=== PATIENT | female | born 1955 | race Caucasian/White ===

== ENCOUNTER 2020-09-02 15:06 | Outpatient (REF) | payer OTHER, SELFPAY ==
[2020-09-02 17:12] LABS: Alanine Aminotransferase 13 U/L (0-31); Albumin Level 4.7 g/dL (3.5-5.0); Alkaline Phosphatase 185 U/L (39-117); Anion Gap 14 (12-20); Aspartate Amino Transferase 20 U/L (5-31); Bilirubin Total 1.1 mg/dL (0.0-1.0); Blood Urea Nitrogen 10 mg/dL (9-16); Calcium 9.4 mg/dL (8.4-10.2); Carbon Dioxide 26 mmol/L (22-29); Chloride 101 mmol/L (96-108); Estimated Glomerular Filt Rate > 60; Glucose Random 92 mg/dL (60-115); Potassium 4.9 mmol/L (3.3-5.1); Sodium 136 mmol/L (135-145); Total Protein 7.7 g/dL (6.5-8.0)
== END 2020-09-02 15:07 | disposition home or self-care (01) ==
LOC: HO.HMGCLDS 15:06
PROVIDERS: PCP Internal Medicine; Visit Provider Internal Medicine
DX: I10 Essential (primary) hypertension (principal)
CPT/HCPCS: 36415; 80053

== ENCOUNTER 2020-10-06 08:50 | Outpatient (REF) | payer OTHER, SELFPAY ==
--- NOTE | ~2020-10-06 | US_ITS ---
EXAMINATION: US ABDOMEN COMPLETE CLINICAL INFORMATION: Other specified abnormal findings of blood chemistry. Abnormal LFTs COMPARISON: Ultrasound abdomen complete 06/12/2018. TECHNIQUE: Real-time imaging of the abdominal viscera. FINDINGS: PANCREAS: Normal. ABDOMINAL AORTA: The proximal, mid, and distal segments are normal in caliber. Atheromatous plaques are noted. INFERIOR VENA CAVA: Visualized portions are normal. LIVER: Normal. The liver is normal in size. The liver contour is normal. Parenchymal echogenicity is normal. No focal hepatic lesion. There is no intrahepatic biliary duct dilatation seen. GALLBLADDER: Normal. The gallbladder is physiologically distended without evidence of stones, sludge, polyps, wall thickening or pericholecystic fluid. COMMON BILE DUCT: Normal in caliber measuring 0.4 cm in diameter. RIGHT KIDNEY: Normal. No hydronephrosis. No renal calculi or focal parenchymal lesions. The kidney measures 8.7 cm in maximum dimension. LEFT KIDNEY: Normal. No hydronephrosis. No renal calculi or focal parenchymal lesions. The kidney measures 9.0 cm in maximum dimension. SPLEEN: Normal. The spleen measures 6.1 cm in maximum dimension. FREE FLUID: None. US/US abdomen complete IMPRESSION: Normal abdominal ultrasound.
== END 2020-10-06 08:51 | disposition home or self-care (01) ==
LOC: HO.HMGCX 08:50
PROVIDERS: PCP Internal Medicine; Visit Provider Internal Medicine
DX: R79.89 Other specified abnormal findings of blood chemistry (principal)
CPT/HCPCS: 76700

== ENCOUNTER 2020-11-02 17:50 | Outpatient (REF) | payer OTHER, SELFPAY ==
--- NOTE | ~2020-11-02 | XR_ITS ---
EXAMINATION: XR CERVICAL SPINE CLINICAL INFORMATION: Cervical pain post injury COMPARISON: None TECHNIQUE: 3 views of the cervical spine were obtained. FINDINGS: No prevertebral soft tissue swelling. Bones are normal anatomic alignment with no acute fracture or spondylolisthesis. Vertebral body heights are preserved and the disc heights appear preserved. There is prominent osteophyte formation anteriorly from C3 to C7. XR/XR cervical spine 3V IMPRESSION: Multilevel degenerative changes but no acute fracture or spondylolisthesis.
== END 2020-11-02 17:51 | disposition home or self-care (01) ==
LOC: HO.HMGCX 17:50
PROVIDERS: PCP Internal Medicine; Visit Provider Nurse Practitioner Family
DX: M54.2 Cervicalgia (principal)
CPT/HCPCS: 72040

== ENCOUNTER → 2020-12-01 08:03 | Outpatient (BNVA) | payer OTHER, SELFPAY | PROVIDERS: PCP Internal Medicine; Referring Provider Internal Medicine; Visit Provider Physician Assistant ==

== ENCOUNTER 2020-12-22 07:19 | Outpatient (REF) | payer OTHER, SELFPAY ==
[2020-12-22 08:44] LABS: Alanine Aminotransferase 12 U/L (0-31); Albumin Level 4.3 g/dL (3.5-5.0); Alkaline Phosphatase 200 U/L (39-117); Aspartate Amino Transferase 18 U/L (5-31); Bilirubin Direct 0.4 mg/dL (0.0-0.5); Bilirubin Total 1.1 mg/dL (0.0-1.0); Cholesterol 210 mg/dL; Gamma Glutamyl Transpeptidase 27 U/L (7-33); HDL Cholesterol 65 mg/dL; LDL Cholesterol Calculated 128 mg/dl; Triglycerides 85 mg/dL
[2020-12-23 08:47] LABS: Lyme Abs Screen <0.90 index
== END 2020-12-22 07:20 | disposition home or self-care (01) ==
LOC: HO.LAB 07:19
PROVIDERS: PCP Internal Medicine; Visit Provider Physician Assistant
DX: R79.89 Other specified abnormal findings of blood chemistry (principal); K76.0 Fatty (change of) liver, not elsewhere classified; R74.8 Abnormal levels of other serum enzymes; R10.11 Right upper quadrant pain; W57.XXXA Bitten or stung by nonvenomous insect and other nonvenomous arthropods, initial encounter
CPT/HCPCS: 36415; 80061; 80076; 82977; 86617; 86618

== ENCOUNTER → 2021-01-24 07:57 | Outpatient (BNVA) | payer OTHER, SELFPAY | PROVIDERS: PCP Internal Medicine; Visit Provider Physician Assistant ==

== ENCOUNTER 2021-07-11 07:21 | Outpatient (REF) | payer OTHER, SELFPAY ==
[2021-07-11 07:31] LABS: MANUAL DIFF FLAG NO
[2021-07-11 07:55] LABS: Basophils Percent Auto 0.3 % (0-2); Eosinophils Absolute Auto 0.2 X10*3/uL (0.0-0.4); Eosinophils Percent Auto 3.7 % (0-4); Hematocrit 36.7 % (37.0-47.0); Hemoglobin 11.8 g/dl (12.0-16.0); Imm Gran Abs Auto 0.01 X10*3/uL (0.00-0.03); Imm Gran Pct Auto 0.2 % (0.0-0.4); Lymphocytes Percent Auto 32.9 % (20-40); Mean Corpuscular HGB Conc 32.2 g/dl (31.0-35.0); Mean Corpuscular Hemoglobin 29.7 pg (27.0-33.0); Mean Corpuscular Volume 92.4 fL (80.0-98.0); Mean Platelet Volume 10.8 fL (9.4-12.3); Monocytes Absolute Auto 0.6 X10*3/uL (0.1-1.2); Monocytes Percent Auto 10.1 % (2-11); Neutrophils Absolute Auto 3.2 x10*3/uL (2.0-8.3); Neutrophils Percent Auto 52.8 % (45-73); Platelet Count 294 X10*3/uL (160-400); Red Blood Count 3.97 X10*6/uL (4.20-5.50); Red Cell Distribution Width 13.2 % (11.0-16.0)
[2021-07-11 08:16] LABS: Alanine Aminotransferase 14 U/L (0-31); Albumin Level 4.1 g/dL (3.5-5.0); Alkaline Phosphatase 157 U/L (39-117); Anion Gap 10 (12-20); Aspartate Amino Transferase 18 U/L (5-31); Bilirubin Direct 0.3 mg/dL (0.0-0.5); Bilirubin Total 0.9 mg/dL (0.0-1.0); Blood Urea Nitrogen 9 mg/dL (9-16); Calcium 9.4 mg/dL (8.4-10.2); Carbon Dioxide 26 mmol/L (22-29); Chloride 107 mmol/L (96-108); Cholesterol 207 mg/dL; Estimated Glomerular Filt Rate > 60; Gamma Glutamyl Transpeptidase 29 U/L (7-33); Glucose Fasting 96 mg/dL (60-99); HDL Cholesterol 69 mg/dL; LDL Cholesterol Calculated 115 mg/dl; Potassium 4.7 mmol/L (3.3-5.1); Sodium 138 mmol/L (135-145); Total Protein 6.9 g/dL (6.5-8.0); Triglycerides 118 mg/dL
[2021-07-11 08:27] LABS: TSH reflex Free T4 2.57 uIU/mL (0.32-4.0)
== END 2021-07-11 07:22 | disposition home or self-care (01) ==
LOC: HO.LAB 07:21
PROVIDERS: Absent Provider Internal Medicine Gastroenterology; PCP Internal Medicine; Visit Provider Internal Medicine
DX: Z00.01 Encounter for general adult medical examination with abnormal findings (principal); I10 Essential (primary) hypertension; R74.8 Abnormal levels of other serum enzymes
CPT/HCPCS: 36415; 80053; 80061; 80076; 82248; 82977; 84443; 85025

== ENCOUNTER 2022-03-09 13:27 | Outpatient (REF) | payer OTHER, SELFPAY ==
[2022-03-09 16:23] LABS: MANUAL DIFF FLAG NO
[2022-03-09 16:27] LABS: Basophils Percent Auto 0.4 % (0-2); Eosinophils Absolute Auto 0.2 X10*3/uL (0.0-0.4); Eosinophils Percent Auto 2.2 % (0-4); Hemoglobin 11.6 g/dl (12.0-16.0); Imm Gran Abs Auto 0.02 X10*3/uL (0.00-0.03); Imm Gran Pct Auto 0.3 % (0.0-0.4); Lymphocytes Absolute Auto 2.1 X10*3/uL (1.2-4.9); Mean Corpuscular HGB Conc 33.1 g/dl (31.0-35.0); Mean Corpuscular Hemoglobin 30.3 pg (27.0-33.0); Mean Corpuscular Volume 91.4 fL (80.0-98.0); Mean Platelet Volume 11.6 fL (9.4-12.3); Monocytes Absolute Auto 0.6 X10*3/uL (0.1-1.2); Monocytes Percent Auto 7.9 % (2-11); Neutrophils Absolute Auto 4.6 x10*3/uL (2.0-8.3); Neutrophils Percent Auto 61.2 % (45-73); Platelet Count 284 X10*3/uL (160-400); Red Blood Count 3.83 X10*6/uL (4.20-5.50); Red Cell Distribution Width 13.2 % (11.0-16.0); White Blood Count 7.6 X10*3/uL (4.8-10.8)
[2022-03-09 16:37] LABS: Alanine Aminotransferase 15 U/L (0-31); Albumin Level 4.7 g/dL (3.5-5.0); Alkaline Phosphatase 173 U/L (39-117); Anion Gap 17 (12-20); Aspartate Amino Transferase 20 U/L (5-31); Bilirubin Total 0.9 mg/dL (0.0-1.0); Blood Urea Nitrogen 7 mg/dL (9-16); Calcium 9.4 mg/dL (8.4-10.2); Carbon Dioxide 24 mmol/L (22-29); Chloride 104 mmol/L (96-108); Estimated Glomerular Filt Rate > 60; Glucose Random 93 mg/dL (60-115); Potassium 4.6 mmol/L (3.3-5.1); Sodium 140 mmol/L (135-145); Total Protein 7.5 g/dL (6.5-8.0)
[2022-03-11 01:17] LABS: LDL Cholesterol Direct 133 mg/dL (<100)
== END 2022-03-09 13:28 | disposition home or self-care (01) ==
LOC: HO.HMGCLDS 13:27
PROVIDERS: PCP Internal Medicine; Visit Provider Internal Medicine
DX: Z00.01 Encounter for general adult medical examination with abnormal findings (principal); I10 Essential (primary) hypertension; R79.89 Other specified abnormal findings of blood chemistry; D64.9 Anemia, unspecified
CPT/HCPCS: 36415; 80053; 83721; 85025

== ENCOUNTER 2022-09-07 13:29 | Outpatient (REF) | payer OTHER, SELFPAY ==
[2022-09-07 18:25] LABS: Alanine Aminotransferase 15 U/L (0-31); Albumin Level 4.2 g/dL (3.5-5.0); Alkaline Phosphatase 140 U/L (39-117); Anion Gap 12 (12-20); Aspartate Amino Transferase 19 U/L (5-31); Bilirubin Total 1.1 mg/dL (0.0-1.0); Blood Urea Nitrogen 9 mg/dL (9-16); Carbon Dioxide 24 mmol/L (22-29); Chloride 108 mmol/L (96-108); Estimated Glomerular Filt Rate > 60; Glucose Random 77 mg/dL (60-115); Potassium 4.1 mmol/L (3.3-5.1); Sodium 140 mmol/L (135-145); Total Protein 6.6 g/dL (6.5-8.0)
== END 2022-09-07 13:30 | disposition home or self-care (01) ==
LOC: HO.HMGCLDS 13:29
PROVIDERS: PCP Internal Medicine; Visit Provider Internal Medicine
DX: I10 Essential (primary) hypertension (principal); R79.89 Other specified abnormal findings of blood chemistry
CPT/HCPCS: 36415; 80053

== ENCOUNTER 2023-01-16 12:44 | Outpatient (AMB) | payer OTHER, SELFPAY ==
[2023-01-16 12:49] VITALS: BP 126/70; PULSE 71; O2SAT 99; BMI 17.6
--- NOTE | 2023-01-16 12:49 | MHC.PC.OV ---
Vital Signs 01/16/23 12:49 Height 4 ft 11 in Weight 87 lb BMI 17.6 BP 126/70 Blood Pressure Location Rt brachial Position Sitting Pulse 71 Pulse Source Pulse Oximeter Pulse Oximetry (%) 99 Oxygen Delivery Method Room Air Intake Visit Reasons: Right Calf Cramp Allergies No Known Allergies Allergy (Verified 01/16/23 12:50) Medication List - Last Reconciled 01/16/23 by Musa Muhammad MD lisinopril 10 mg PO DAILY Tobacco use date assessed: 01/16/23 Fall risk assessment: No Falls in past year Last assessed Fall Risk: 01/16/23 Dental Screening Dental Screen Date: 01/16/23 Did you have a dental visit in the last 12 months?: Yes Did you have a dental problem in the last 6 months where you did not have access to dental care?: No Was dental information given to patient?: No HPI Right Calf Cramp HPI Details Patient is 67-year-old female who traveled to [place] few days ago and was walking a lot during her visit came in today with a chief complaint of pain right calf for the past few days since she has had visit to [place] Patient says that it does not hurt all the time but she is aware that there is something going on. It feels like a soreness more so when she is walking. On examination she is tender over calf with pressure home inside in a is slightly positive I am ordering ultrasound of her calf stat to rule out DVT. 16:14 ultrasound report came back negative for DVT patient was [facility] Medical History Tick bite Family History Unknown No family history of colorectal cancer Social History Household Members Other:: Lives alone Housing: House Alcohol intake: current Alcohol intake frequency: a few times a month Patient Tobacco Use Status: Former Tobacco user Years Smoked: 20 yrs e-Cigarette/Vaping Use: Never Used Current occupational status: employed Cognitive needs: No Hearing needs: No Vision needs: Yes Questionnaire Thrive Questionnaire Date Thrive assessed: 03/09/22 AUDIT C Alcohol Use Questionnaire (AUDIT-C) 1. How often do you have a drink containing alcohol?: Never 3. How often do you have six or more drinks on one occasion?: Never Total Score: 0 Score Reviewed/Action Taken: Yes VENESSA-7 AMB Questionnaire VENESSA-7 Date VENESSA - 7 assessed: 03/09/22 Source: Developed by Drs. Trip Shepard, Cassandra Hernandez, Td Mendoza and colleagues, with an educational kristi from [employer]. Review of Systems Const Denies chills and Denies fever(s) ENT Denies epistaxis and Denies nasal discharge Card Denies chest pain Resp Denies chest congestion, Denies cough and Denies hemoptysis GI Denies diarrhea and Denies nausea Skin/Breast Denies rash Neuro Reports no additional complaints Psych Reports no additional complaints Endo Reports no additional complaints Physical exam (Primary Care) Vital Signs: Last Vital Signs Pulse 71 01/16/23 12:49 BP 126/70 01/16/23 12:49 Pulse Ox 99 01/16/23 12:49 Oxygen Delivery Method Room Air 01/16/23 12:49 BMI result Body Mass Index 17.6 Tobacco/Smoking Status: Tobacco use Status Tobacco use date assessed 01/16/23 01/16/23 12:50 Patient Tobacco Use Status Former Tobacco user 01/16/23 12:50 e-Cigarette/Vaping Use Never Used 01/16/23 12:50 Thrive Assessment: Date of Thrive Assessment Date Thrive assessed 03/09/22 01/16/23 12:50 Const General: cooperative, comfortable and no acute distress Orientation/consciousness: patient oriented x3 HENMT Head: Yes normocephalic Eyes General: appearance normal, both eyes and all related structures Neck Neck: Yes supple Resp Effort & Inspection: normal respiratory effort, no cough and no stridor Cardio Rhythm: regular rhythm Heart sounds: S1 normal heart sound present and S2 normal heart sound present Skin General skin exam: turgor normal Neuro General: patient oriented x3, tone normal and moves all extremities Extrem Other: Tender over right calf with pressure Sin sign slightly positive Right lower extremity: no edema Left lower extremity: no edema Assessment and Plan Assessment & Plan (1) Tenderness of right calf: Code(s): M79.661 - Pain in right lower leg Plan Patient is 67-year-old female who traveled to [place] few days ago and was walking a lot during her visit came in today with a chief complaint of pain right calf for the past few days since she has had visit to [place] Patient says that it does not hurt all the time but she is aware that there is something going on. It feels like a soreness more so when she is walking. On examination she is tender over calf with pressure home inside in a is slightly positive I am ordering ultrasound of her calf stat to rule out DVT. 16:14 ultrasound report came back negative for DVT patient was notified Orders: Orders US venous duplex LE RT Today M79.661 - Pain in right lower leg Medications: Refilled lisinopril 10 mg PO DAILY 90 tabs 0RF Coding Level of Care Code Est Pt Level 5 (22625) Diagnoses Tenderness of right calf M79.661 Comment More than 45 minute spent in coordination of care
== END 2023-01-16 14:08 | disposition home or self-care (01) ==
PROVIDERS: PCP Internal Medicine; Visit Provider Internal Medicine
DX: M79.661 Pain in right lower leg (principal); R25.2 Cramp and spasm
CPT/HCPCS: 99215

== ENCOUNTER 2023-01-16 13:23 | Outpatient (REF) | payer OTHER, SELFPAY ==
--- NOTE | ~2023-01-16 | US_ITS ---
EXAMINATION: US VENOUS ULTRASOUND WITH DOPPLER LOWER EXTREMITY, RIGHT CLINICAL INFORMATION: Right lower leg pain. COMPARISON: None available. TECHNIQUE: Ultrasound of the deep veins is performed from the hip to the calf with compression sonography and color and pulse Doppler assessment. Spectral analysis with color-flow imaging is performed. FINDINGS: There is normal venous compression and respiratory variation and augmented flow. The visualized common femoral vein, superficial femoral vein, profunda femoral vein, popliteal vein, and the trifurcation region shows no evidence of deep venous thrombosis. No right popliteal cyst. The subcutaneous soft tissues are unremarkable. If the patient's symptoms persist, followup ultrasound in 5 days 7 days might be of value to exclude proximal propagation from a non-visualized calf vein. US/US venous duplex LE RT IMPRESSION: No evidence for deep venous thrombosis in the visualized veins of the right lower extremity.
== END 2023-01-16 13:24 | disposition home or self-care (01) ==
LOC: HO.HMGCX 13:23
PROVIDERS: PCP Internal Medicine; Visit Provider Internal Medicine
DX: M79.661 Pain in right lower leg (principal)
CPT/HCPCS: 93971

== ENCOUNTER 2023-03-15 12:59 | Outpatient (AMB) | payer OTHER, SELFPAY ==
[2023-03-15 13:01] VITALS: BP 126/72; PULSE 72; O2SAT 96; BMI 17.9
--- NOTE | 2023-03-15 13:01 | MHC.PC.OV ---
Vital Signs 03/15/23 13:01 Height 4 ft 11 in Weight 88 lb 8 oz BMI 17.9 BP 126/72 Blood Pressure Location Lt brachial Position Sitting Pulse 72 Pulse Source Pulse Oximeter Pulse Oximetry (%) 96 Oxygen Delivery Method Room Air Intake Visit Reasons: PE Allergies No Known Allergies Allergy (Verified 03/15/23 13:01) Medication List - Last Reconciled 03/15/23 by Musa Muhammad MD lisinopril 10 mg PO DAILY Tobacco use date assessed: 03/15/23 Fall risk assessment: No Falls in past year Last assessed Fall Risk: 03/15/23 Dental Screening Dental Screen Date: 03/15/23 Did you have a dental visit in the last 12 months?: Yes Did you have a dental problem in the last 6 months where you did not have access to dental care?: No Was dental information given to patient?: Patient has dentist HPI PE HPI Details Patient is a 67-year-old female came in today for physical examination She is on lisinopril 10 mg for blood pressure control Mammogram apt is coming up Due for bone density had colonoscopy by Dr. Marilyn Dacosta, next one will be 2027 Pap smear June of 2020, every 5 years Patient has seen Gastroenterology for elevated liver enzymes seeing Urologist for blood in urine, doing well, and will have f.u once a year with Urology Lab order already in her system patient was supposed to have that before this visit. Reminded Follow-up 6 months physical examination 1 year [facility] [place] Medical History Tick bite Family History Unknown No family history of colorectal cancer Social History Household Members Other:: Lives alone Housing: House Alcohol intake: current Alcohol intake frequency: a few times a month Patient Tobacco Use Status: Former Tobacco user Years Smoked: 20 yrs e-Cigarette/Vaping Use: Never Used service: No Current occupational status: employed Cognitive needs: No Hearing needs: No Vision needs: Yes Questionnaire PHQ-9 Over the last 2 weeks, how often have you been bothered by any of the following problems? 1. Little interest or pleasure in doing things: not at all 2. Feeling down, depressed, or hopeless: not at all 3. Trouble falling or staying asleep, or sleeping too much: not at all 4. Feeling tired or having little energy: not at all 5. Poor appetite or overeating: not at all 6. Feeling bad about yourself - or that you are a failure or have let yourself or your family down: not at all 7. Trouble concentrating on things, such as reading the newspaper or watching television: not at all 8. Moving or speaking so slowly that other people could have noticed. Or the opposite - being so fidgety or restless that you have been moving around a lot more than usual: not at all 9. Thoughts that you would be better off or of hurting yourself in some way: not at all Total score: 0 Depression Screening Interpretation: Negative 79313 - PHQ-9 Billing: Yes Source: Developed by Drs. Trip Shepard, Cassandra Hernandez, Td Mendoza and colleagues, with an educational kristi from [employer]. Thrive Questionnaire Date Thrive assessed: 03/15/23 I am a: Patient What is your living situation today?: I have a steady place to live Within the past 12 months, did the food you bought not last and you didn't have the money to get more?: Never true Within the past 12 months, did you worry whether your food would run out before you got money to buy more?: Never true Do you have trouble paying for medicines?: No Do you have trouble getting transportation to medical appointments?: No Do you have trouble paying your heating and electricity bill?: No Do you have trouble taking care of your child, family member or friend?: No Do you have trouble with day-to-day activities such as bathing, preparing meals, shopping, managing finances, etc.?: No Are you currently unemployed and looking for a job?: Yes Are you interested in more education?: Yes AUDIT C Alcohol Use Questionnaire (AUDIT-C) 1. How often do you have a drink containing alcohol?: Never 3. How often do you have six or more drinks on one occasion?: Never Total Score: 0 Score Reviewed/Action Taken: Yes VENESSA-7 AMB Questionnaire VENESSA-7 Date VENESSA - 7 assessed: 03/15/23 Feeling nervous, anxious, or on edge: 0 = Not at all Not being able to stop or control worryin = Not at all Worrying too much about different things: 0 = Not at all Trouble relaxin = Not at all Being so restless that it is hard to sit still: 0 = Not at all Becoming easily annoyed or irritable: 0 = Not at all Feeling afraid as if something awful might happen: 0 = Not at all Total VENESSA-7 score (0-4 normal; 5-9 mild; 10-14 moderate; 15-21 severe): 0 Source: Developed by Drs. Trip Shepard, Cassandra Hernandez, Td Mendoza and colleagues, with an educational kristi from [employer]. VENESSA-7 Assessment Billing VENESSA-7 Assessment Tool: VENESSA-7 Assessment 74497 Review of Systems Const Denies chills and Denies fever(s) Eyes Denies blurry vision ENT Denies epistaxis and Denies nasal discharge Card Denies chest pain Resp Denies chest congestion, Denies cough and Denies hemoptysis GI Denies diarrhea and Denies nausea Reports as per HPI Musc Denies abnormal gait Skin/Breast Denies rash Neuro Reports no additional complaints, Denies abnormal gait and Denies Sensory deficit (Neuro) Psych Reports no additional complaints Endo Reports no additional complaints Serge/Lymph Reports as per HPI Aller/Immun Reports as per HPI Physical exam (Primary Care) Vital Signs: Last Vital Signs Pulse 72 03/15/23 13:01 BP 126/72 03/15/23 13:01 Pulse Ox 96 03/15/23 13:01 Oxygen Delivery Method Room Air 03/15/23 13:01 BMI result Body Mass Index 17.9 Tobacco/Smoking Status: Tobacco use Status Tobacco use date assessed 03/15/23 03/15/23 13:02 Patient Tobacco Use Status Former Tobacco user 03/15/23 13:02 e-Cigarette/Vaping Use Never Used 03/15/23 13:02 PHQ-9: PHQ-9 Score PHQ-9: Total score 0 03/15/23 13:40 Depression Screening Interpretation: Negative Thrive Assessment: Date of Thrive Assessment Date Thrive assessed 03/15/23 03/15/23 13:40 Const General: cooperative, comfortable and no acute distress Orientation/consciousness: patient oriented x3 HENMT Head: Yes normocephalic Eyes General: appearance normal, both eyes and all related structures Pupils: Equal, round and reactive pupils present EOM: EOMs intact bilaterally Neck Neck: Yes supple Thyroid: Thyroid normal Lymphatic: no lymphadenopathy noted Chest Breast/axilla palpation: normal palpation of the breasts Resp Effort & Inspection: normal respiratory effort, no cough and no stridor Auscultation: clear to auscultation bilaterally Cardio Rhythm: regular rhythm Heart sounds: S1 normal heart sound present and S2 normal heart sound present GI Palpation (GI): Soft to palpation and nontender Auscultation: normal bowel sounds General: Yes no CVA tenderness Back/Spine/Pelvis Back: no CVA tenderness Skin General skin exam: turgor normal Neuro General: patient oriented x3, tone normal and moves all extremities Cranial nerves: Yes Equal, round and reactive pupils present Sensory Exam: No Sensory deficit (Neuro) Coordination: tandem gait normal and Romberg test negative Extrem General: Yes normal exam except as noted and No edema Right lower extremity: no edema Left lower extremity: no edema Assessment and Plan Assessment & Plan (1) Encounter for general adult medical examination with abnormal findings: Code(s): Z00.01 - Encounter for general adult medical examination with abnormal findings (2) Elevated alkaline phosphatase level: Comment: [id number] on elevated alk-phos Code(s): R74.8 - Abnormal levels of other serum enzymes (3) Osteoarthritis of multiple joints: Code(s): M15.9 - Polyosteoarthritis, unspecified Qualifiers: Osteoarthritis type: primary Qualified Code(s): M15.9 - Polyosteoarthritis, unspecified (4) Hypertension, essential: Code(s): I10 - Essential (primary) hypertension Plan Patient is a 67-year-old female came in today for physical examination She is on lisinopril 10 mg for blood pressure control Mammogram apt is coming up Due for bone density had colonoscopy by Dr. Marilyn Dacosta, next one will be 2027 Pap smear June of 2020, every 5 years Patient has seen Gastroenterology for elevated liver enzymes seeing Urologist for blood in urine, doing well, and will have f.u once a year with Urology Lab order already in her system patient was supposed to have that before this visit. Reminded Follow-up 6 months physical examination 1 year Coding Level of Care Code Est Pt Prev Care >65y(21974) Diagnoses Encounter for general adult medical examination with abnormal findings Z00.01 Elevated alkaline phosphatase level R74.8 Primary osteoarthritis involving multiple joints M15.9 Osteoarthritis type: primary Hypertension, essential I10 Additional Codes VENESSA-7 Assessment Billing - VENESSA-7 Assessment Tool: VENESSA-7 Assessment 30030 ([id number])
== END 2023-03-15 13:29 | disposition home or self-care (01) ==
PROVIDERS: Visit Provider Internal Medicine
DX: Z00.01 Encounter for general adult medical examination with abnormal findings (principal); R74.8 Abnormal levels of other serum enzymes; M15.9 Polyosteoarthritis, unspecified; I10 Essential (primary) hypertension
CPT/HCPCS: 99397

== ENCOUNTER 2023-03-28 07:05 | Outpatient (REF) | payer OTHER, SELFPAY ==
[2023-03-28 07:14] LABS: MANUAL DIFF FLAG NO
[2023-03-28 07:50] LABS: Basophils Percent Auto 0.6 % (0-2); Eosinophils Absolute Auto 0.2 X10*3/uL (0.0-0.4); Eosinophils Percent Auto 2.9 % (0-4); Hematocrit 37.5 % (37.0-47.0); Hemoglobin 12.5 g/dl (12.0-16.0); Imm Gran Abs Auto 0.01 X10*3/uL (0.00-0.03); Imm Gran Pct Auto 0.2 % (0.0-0.4); Lymphocytes Absolute Auto 1.7 X10*3/uL (1.2-4.9); Lymphocytes Percent Auto 33.3 % (20-40); Mean Corpuscular HGB Conc 33.3 g/dl (31.0-35.0); Mean Corpuscular Hemoglobin 31.2 pg (27.0-33.0); Mean Corpuscular Volume 93.5 fL (80.0-98.0); Mean Platelet Volume 10.5 fL (9.4-12.3); Monocytes Absolute Auto 0.5 X10*3/uL (0.1-1.2); Monocytes Percent Auto 9.4 % (2-11); Neutrophils Absolute Auto 2.8 x10*3/uL (2.0-8.3); Neutrophils Percent Auto 53.6 % (45-73); Platelet Count 305 X10*3/uL (160-400); Red Blood Count 4.01 X10*6/uL (4.20-5.50); Red Cell Distribution Width 13.5 % (11.0-16.0); White Blood Count 5.2 X10*3/uL (4.8-10.8)
[2023-03-28 08:28] LABS: Alanine Aminotransferase 15 U/L (0-31); Albumin Level 4.5 g/dL (3.5-5.0); Alkaline Phosphatase 139 U/L (39-117); Anion Gap 14 (12-20); Aspartate Amino Transferase 22 U/L (5-31); Blood Urea Nitrogen 8 mg/dL (9-16); Calcium 9.8 mg/dL (8.4-10.2); Carbon Dioxide 23 mmol/L (22-29); Chloride 107 mmol/L (96-108); Cholesterol 251 mg/dL (<200); Estimated Glomerular Filt Rate > 60; Glucose Fasting 94 mg/dL (60-99); HDL Cholesterol 79 mg/dL (>40); LDL Cholesterol Calculated 150 mg/dL (<100); Potassium 4.5 mmol/L (3.3-5.1); Sodium 139 mmol/L (135-145); Total Protein 7.3 g/dL (6.5-8.0); Triglycerides 111 mg/dL (<150)
[2023-03-28 08:47] LABS: Ferritin 48 ng/mL (10-250)
== END 2023-03-28 07:06 | disposition home or self-care (01) ==
LOC: HO.LAB 07:05
PROVIDERS: PCP Internal Medicine; Visit Provider Internal Medicine
DX: I10 Essential (primary) hypertension (principal); R79.89 Other specified abnormal findings of blood chemistry; D64.9 Anemia, unspecified; M15.9 Polyosteoarthritis, unspecified
CPT/HCPCS: 36415; 80053; 80061; 82728; 85025

== ENCOUNTER 2023-09-13 12:56 | Outpatient (AMB) | payer OTHER, SELFPAY ==
[2023-09-13 13:14] VITALS: BP 118/62; PULSE 69; O2SAT 97; BMI 17.2
--- NOTE | 2023-09-13 13:14 | MHC.PC.OV ---
Vital Signs 09/13/23 13:14 Height 4 ft 11 in Weight 85 lb 6 oz BMI 17.2 BP 118/62 Blood Pressure Location Rt brachial Position Sitting Pulse 69 Pulse Source Pulse Oximeter Pulse Oximetry (%) 97 Oxygen Delivery Method Room Air Intake Visit Reasons: 6 month follow up Allergies No Known Allergies Allergy (Verified 09/13/23 13:16) Medication List - Last Reconciled 09/13/23 by Musa Muhammad MD lisinopril 10 mg PO DAILY rosuvastatin 5 mg PO DAILY Tobacco use date assessed: 09/13/23 Fall risk assessment: No Falls in past year Last assessed Fall Risk: 09/13/23 Dental Screening Dental Screen Date: 09/13/23 Did you have a dental visit in the last 12 months?: Yes Did you have a dental problem in the last 6 months where you did not have access to dental care?: No Was dental information given to patient?: Patient has dentist HPI 6 month follow up HPI Details Patient is 67-year-old female came in today for preop clearance and follow-up Patient is taking lisinopril 10 mg for blood pressure control, she is tolerating medication her blood pressure is controlled She is also on small dose of rosuvastatin for lipid control She is due for labs Patient is going in for left eye vitrectomy October [address] Rasmussen by [facility] specialist Patient need clearance for that surgery Currently she is having some allergy symptoms due to spring which present with nasal congestion and irritated cough I have told her to start taking Claritin or Zyrtec [id number] She has no fever no chills no nausea vomiting diarrhea no chest congestion Patient has no cardiac history she is known diabetic I will create addendum once I have lab report for clearance [facility] Medical History Tick bite Family History Unknown No family history of colorectal cancer Social History Household Members Other:: Lives alone Housing: House Alcohol intake: current Alcohol intake frequency: a few times a month Patient Tobacco Use Status: Former Tobacco user Years Smoked: 20 yrs e-Cigarette/Vaping Use: Never Used service: No Current occupational status: employed Cognitive needs: No Hearing needs: No Vision needs: Yes Questionnaire Thrive Questionnaire Date Thrive assessed: 03/15/23 AUDIT C Alcohol Use Questionnaire (AUDIT-C) 1. How often do you have a drink containing alcohol?: Never 3. How often do you have six or more drinks on one occasion?: Never Total Score: 0 Score Reviewed/Action Taken: Yes VENESSA-7 AMB Questionnaire VENESSA-7 Date VENESSA - 7 assessed: 03/15/23 Source: Developed by Drs. Trip Shepard, Cassandra Hernandez, Td Mendoza and colleagues, with an educational kristi from [employer]. Review of Systems Const Denies chills and Denies fever(s) ENT Denies epistaxis Card Denies chest pain Resp Denies chest congestion and Denies hemoptysis GI Denies diarrhea and Denies nausea Skin/Breast Denies rash Neuro Reports no additional complaints Psych Reports no additional complaints Endo Reports no additional complaints Physical exam (Primary Care) Vital Signs: Last Vital Signs Pulse 69 09/13/23 13:14 BP 118/62 09/13/23 13:14 Pulse Ox 97 09/13/23 13:14 Oxygen Delivery Method Room Air 09/13/23 13:14 BMI result Body Mass Index 17.2 Tobacco/Smoking Status: Tobacco use Status Tobacco use date assessed 09/13/23 09/13/23 13:16 Patient Tobacco Use Status Former Tobacco user 09/13/23 13:16 e-Cigarette/Vaping Use Never Used 09/13/23 13:16 Thrive Assessment: Date of Thrive Assessment Date Thrive assessed 03/15/23 09/13/23 13:16 Const General: cooperative, comfortable and no acute distress Orientation/consciousness: patient oriented x3 HENMT Head: Yes normocephalic Eyes General: appearance normal, both eyes and all related structures Neck Neck: Yes supple Resp Effort & Inspection: normal respiratory effort, no cough and no stridor Cardio Rhythm: regular rhythm Heart sounds: S1 normal heart sound present and S2 normal heart sound present Skin General skin exam: turgor normal Neuro General: patient oriented x3, tone normal and moves all extremities Extrem Right lower extremity: no edema Left lower extremity: no edema Assessment and Plan Assessment & Plan (1) Pre-operative clearance: Code(s): Z01.818 - Encounter for other preprocedural examination (2) Hypertension, essential: Code(s): I10 - Essential (primary) hypertension (3) LFT elevation: Code(s): R79.89 - Other specified abnormal findings of blood chemistry (4) 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 Rasmussen by [facility] Patient need clearance for that surgery Currently she is having some allergy symptoms due to spring which present with nasal congestion and irritated cough I have told her to start taking Claritin or Zyrtec [id number] She has no fever no chills no nausea vomiting diarrhea no chest congestion Patient has no cardiac history she is known diabetic I will create addendum once I have lab report for clearance Orders: Orders Comprehensive [facility]. 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, R79.89 - Other specified abnormal findings of blood chemistry, Z01.818 - Encounter for other preprocedural examination, Z91.09 - Other allergy status, other than to drugs and biological substances Complete Blood Count Auto Diff Today E78.9 - Disorder of lipoprotein metabolism, unspecified, I10 - Essential (primary) hypertension, 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
== END 2023-09-13 13:27 | disposition home or self-care (01) ==
PROVIDERS: PCP Internal Medicine; Visit Provider Internal Medicine
DX: Z01.818 Encounter for other preprocedural examination (principal); I10 Essential (primary) hypertension; R79.89 Other specified abnormal findings of blood chemistry; E78.9 Disorder of lipoprotein metabolism, unspecified; Q14.0 Congenital malformation of vitreous humor; Z91.09 Other allergy status, other than to drugs and biological substances
CPT/HCPCS: 99214

== ENCOUNTER 2023-09-17 06:35 | Outpatient (REF) | payer OTHER, SELFPAY ==
[2023-09-17 06:46] LABS: MANUAL DIFF FLAG NO
[2023-09-17 07:18] LABS: Basophils Percent Auto 0.7 % (0-2); Eosinophils Absolute Auto 0.1 X10*3/uL (0.0-0.4); Hematocrit 35.2 % (37.0-47.0); Hemoglobin 11.5 g/dl (12.0-16.0); Imm Gran Abs Auto 0.02 X10*3/uL (0.00-0.03); Imm Gran Pct Auto 0.4 % (0.0-0.4); Lymphocytes Absolute Auto 1.6 X10*3/uL (1.2-4.9); Lymphocytes Percent Auto 34.9 % (20-40); Mean Corpuscular HGB Conc 32.7 g/dl (31.0-35.0); Mean Corpuscular Hemoglobin 30.1 pg (27.0-33.0); Mean Corpuscular Volume 92.1 fL (80.0-98.0); Mean Platelet Volume 10.4 fL (9.4-12.3); Monocytes Absolute Auto 0.6 X10*3/uL (0.1-1.2); Monocytes Percent Auto 12.5 % (2-11); Neutrophils Absolute Auto 2.2 x10*3/uL (2.0-8.3); Neutrophils Percent Auto 49.5 % (45-73); Platelet Count 360 X10*3/uL (160-400); Red Blood Count 3.82 X10*6/uL (4.20-5.50); Red Cell Distribution Width 13.3 % (11.0-16.0); White Blood Count 4.5 X10*3/uL (4.8-10.8)
[2023-09-17 07:47] LABS: Alanine Aminotransferase 14 U/L (0-31); Alkaline Phosphatase 170 U/L (39-117); Anion Gap 12 (12-20); Aspartate Amino Transferase 16 U/L (5-31); Bilirubin Total 0.9 mg/dL (0.0-1.0); Blood Urea Nitrogen 9 mg/dL (9-16); Calcium 9.2 mg/dL (8.4-10.2); Carbon Dioxide 24 mmol/L (22-29); Chloride 109 mmol/L (96-108); Cholesterol 153 mg/dL (<200); Estimated Glomerular Filt Rate > 60; Glucose Fasting 93 mg/dL (60-99); HDL Cholesterol 63 mg/dL (>40); LDL Cholesterol Calculated 70 mg/dL (<100); Potassium 4.1 mmol/L (3.3-5.1); Sodium 141 mmol/L (135-145); Total Protein 7.1 g/dL (6.5-8.0); Triglycerides 101 mg/dL (<150)
== END 2023-09-17 06:36 | disposition home or self-care (01) ==
LOC: HO.LAB 06:35
PROVIDERS: PCP Internal Medicine; Visit Provider Internal Medicine
DX: Z01.818 Encounter for other preprocedural examination (principal); Q14.0 Congenital malformation of vitreous humor; E78.9 Disorder of lipoprotein metabolism, unspecified; R79.89 Other specified abnormal findings of blood chemistry; I10 Essential (primary) hypertension; Z91.09 Other allergy status, other than to drugs and biological substances
CPT/HCPCS: 36415; 80053; 80061; 85025

== ENCOUNTER 2024-03-27 14:39 | Outpatient (AMB) | payer OTHER, SELFPAY ==
[2024-03-27 14:45] VITALS: BP 110/62; PULSE 71; O2SAT 97; BMI 16.9
--- NOTE | 2024-03-27 14:45 | MHC.PC.OV ---
Vital Signs 03/27/24 14:45 Height 4 ft 11 in Weight 83 lb 8 oz BMI 16.9 BP 110/62 Blood Pressure Location Rt brachial Position Sitting Pulse 71 Pulse Source Pulse Oximeter Pulse Oximetry (%) 97 Oxygen Delivery Method Room Air Intake Visit Reasons: PE Allergies No Known Allergies Allergy (Verified 03/27/24 14:45) Medication List - Last Reconciled 03/27/24 by Musa Muhammad MD lisinopril 10 mg PO DAILY rosuvastatin 5 mg PO DAILY Tobacco use date assessed: 03/27/24 Fall risk assessment: No Falls in past year Last assessed Fall Risk: 03/27/24 Dental Screening Dental Screen Date: 03/27/24 Did you have a dental visit in the last 12 months?: Yes Did you have a dental problem in the last 6 months where you did not have access to dental care?: No Was dental information given to patient?: Patient has dentist HPI PE HPI Details Patient is a 68-year-old female came in today for physical examination Due for both mammogram and bone density Patient goes to [facility] which is affiliated with [facility] Order printed and handed to patient She is on lisinopril 10 mg for blood pressure control had colonoscopy by Dr. Marilyn Dacosta, next one will be 2027 Pap smear June of 2020, every 5 years Patient has seen Gastroenterology for elevated liver enzymes seeing Urologist for blood in urine, doing well, she has been discharged from Urology Labs to be done today She is on small dose of statin for lipid control and LDL is well-controlled Follow-up 6 months physical exam 1 year [facility] Medical History Tick bite Family History Unknown No family history of colorectal cancer Social History Household Members Other:: Lives alone Housing: House Alcohol intake: current Alcohol intake frequency: a few times a month Patient Tobacco Use Status: Former Tobacco user Years Smoked: 20 yrs e-Cigarette/Vaping Use: Never Used service: No Current occupational status: employed Cognitive needs: No Hearing needs: No Vision needs: Yes Questionnaire PHQ-9 Over the last 2 weeks, how often have you been bothered by any of the following problems? 1. Little interest or pleasure in doing things: not at all 2. Feeling down, depressed, or hopeless: not at all 3. Trouble falling or staying asleep, or sleeping too much: not at all 4. Feeling tired or having little energy: not at all 5. Poor appetite or overeating: not at all 6. Feeling bad about yourself - or that you are a failure or have let yourself or your family down: not at all 7. Trouble concentrating on things, such as reading the newspaper or watching television: not at all 8. Moving or speaking so slowly that other people could have noticed. Or the opposite - being so fidgety or restless that you have been moving around a lot more than usual: not at all 9. Thoughts that you would be better off or of hurting yourself in some way: not at all Total score: 0 Depression Screening Interpretation: Negative Depression Screening Done: Yes 89994 - PHQ-9 Billing: Yes Source: Developed by Drs. Trip Shepard, Cassandra Hernandez, Td Mendoza and colleagues, with an educational kristi from [employer]. Thrive Questionnaire Date Thrive assessed: 03/27/24 I am a: Patient What is your living situation today?: I have a steady place to live Within the past 12 months, did the food you bought not last and you didn't have the money to get more?: Never true Within the past 12 months, did you worry whether your food would run out before you got money to buy more?: Never true Do you have trouble paying for medicines?: No Do you have trouble getting transportation to medical appointments?: No Do you have trouble paying your heating and electricity bill?: No Do you have trouble taking care of your child, family member or friend?: No Do you have trouble with day-to-day activities such as bathing, preparing meals, shopping, managing finances, etc.?: No Are you currently unemployed and looking for a job?: No Are you interested in more education?: No Please select the resources that you would like help with: None Currently or been in a relationship where the following occur: No concerns reported THRIVE Score: 0 AUDIT C Alcohol Use Questionnaire (AUDIT-C) 1. How often do you have a drink containing alcohol?: Never 3. How often do you have six or more drinks on one occasion?: Never Total Score: 0 Score Reviewed/Action Taken: Yes VENESSA-7 AMB Questionnaire VENESSA-7 Date VENESSA - 7 assessed: 03/27/24 Feeling nervous, anxious, or on edge: 0 = Not at all Not being able to stop or control worryin = Not at all Worrying too much about different things: 0 = Not at all Trouble relaxin = Not at all Being so restless that it is hard to sit still: 0 = Not at all Becoming easily annoyed or irritable: 0 = Not at all Feeling afraid as if something awful might happen: 0 = Not at all Total VENESSA-7 score (0-4 normal; 5-9 mild; 10-14 moderate; 15-21 severe): 0 Source: Developed by Drs. Trip Shepard, Cassandra Hernandez, Td Mendoza and colleagues, with an educational kristi from [employer]. VENESSA-7 Assessment Billing VENESSA-7 Assessment Tool: VENESSA-7 Assessment 97912 Review of Systems Const Denies chills, Denies fever(s) and Denies headache(s) Eyes Denies blurry vision ENT Denies headache(s), Denies nasal discharge, Denies nasal obstruction, Denies odynophagia and Denies sinus pain Card Denies chest pain at rest and Denies chest pain with activity Resp Denies cough and Denies hemoptysis GI Denies diarrhea, Denies odynophagia, Denies vomiting and Denies hematemesis Reports as per HPI Musc Denies abnormal gait Skin/Breast Reports as per HPI Neuro Denies Neuro-related abnormal movements, Denies Abnormal speech present, Denies abnormal gait, Denies headache(s) and Denies Sensory deficit (Neuro) Psych Denies mood swings and Denies paranoia Endo Reports as per HPI Serge/Lymph Reports as per HPI Aller/Immun Reports as per HPI Physical exam (Primary Care) Vital Signs: Last Vital Signs Pulse 71 03/27/24 14:45 BP 110/62 03/27/24 14:45 Pulse Ox 97 03/27/24 14:45 Oxygen Delivery Method Room Air 03/27/24 14:45 BMI result Body Mass Index 16.9 Tobacco/Smoking Status: Tobacco use Status Tobacco use date assessed 03/27/24 03/27/24 14:49 Patient Tobacco Use Status Former Tobacco user 03/27/24 14:49 e-Cigarette/Vaping Use Never Used 03/27/24 14:49 PHQ-9: PHQ-9 Score PHQ-9: Total score 0 03/27/24 14:54 Depression Screening Interpretation: Negative Thrive Assessment: Date of Thrive Assessment Date Thrive assessed 03/27/24 03/27/24 14:49 Currently or been in a relationship where the following occur: No concerns reported Const General: cooperative, comfortable and no acute distress Orientation/consciousness: patient oriented x3 HENMT Head: Yes normocephalic and Yes atraumatic Eyes General: appearance normal, both eyes and all related structures Pupils: Equal, round and reactive pupils present EOM: EOMs intact bilaterally Neck Neck: Yes supple and No lymphadenopathy Thyroid: Thyroid normal Lymphatic: no lymphadenopathy noted Chest Breast/axilla palpation: normal palpation of the breasts Resp Effort & Inspection: normal respiratory effort and able to speak in complete sentences Auscultation: clear to auscultation bilaterally Cardio Heart sounds: S1 normal heart sound present and S2 normal heart sound present GI Palpation (GI): Soft to palpation and nontender Auscultation: normal bowel sounds General: Yes no CVA tenderness Back/Spine/Pelvis Back: no CVA tenderness Skin General skin exam: elasticity normal and turgor normal Neuro General: patient oriented x3 and gait normal Cranial nerves: Yes Equal, round and reactive pupils present Speech: No Abnormal speech present Sensory Exam: No Sensory deficit (Neuro) Coordination: tandem gait normal and Romberg test negative Extrem General: Yes normal exam except as noted and No edema Coding Level of Care Code Est Pt Level 3 (36882) Est Pt Prev Care >65y(50864) Diagnoses Encounter for general adult medical examination with abnormal findings Z00. 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 Osteoarthritis type: primary Lipid disorder E78.9 Menopause Z78.0 Additional Codes VENESSA-7 Assessment Billing - VENESSA-7 Assessment Tool: VENESSA-7 Assessment [id number] ([id number]) Assessment & Plan Assessment & Plan (1) Encounter for general adult medical examination with abnormal findings: Code(s): Z00.01 - Encounter for general adult medical examination with abnormal findings Category: Medical (2) Hypertension, essential: Code(s): I10 - Essential (primary) hypertension Category: Medical (3) LFT elevation: Code(s): R79.89 - Other specified abnormal findings of blood chemistry Category: Medical (4) Osteoarthritis of multiple joints: Code(s): M15.9 - Polyosteoarthritis, unspecified Category: Medical Qualifiers: Osteoarthritis type: primary Qualified Code(s): M15.9 - Polyosteoarthritis, unspecified (5) Lipid disorder: Code(s): E78.9 - Disorder of lipoprotein metabolism, unspecified Category: Medical (6) Menopause: Code(s): Z78.0 - Asymptomatic menopausal state Category: Medical Plan Patient is a 68-year-old female came in today for physical examination Due for both mammogram and bone density Patient goes to [facility] which is affiliated with [facility] Order printed and handed to patient She is on lisinopril 10 mg for blood pressure control had colonoscopy by Dr. Marilyn Dacosta, next one will be 2027 Pap smear June of 2020, every 5 years Patient has seen Gastroenterology for elevated liver enzymes seeing Urologist for blood in urine, doing well, she has been discharged from Urology Labs to be done today She is on small dose of statin for lipid control and LDL is well-controlled Follow-up 6 months physical exam 1 year Orders: Orders Complete Blood Count Auto Diff Today E78.9 - Disorder of lipoprotein metabolism, unspecified, I10 - Essential (primary) hypertension, M15.9 - Polyosteoarthritis, unspecified, R79.89 - Other specified abnormal findings of blood chemistry, Z00.01 - Encounter for general adult medical examination with abnormal findings Comprehensive Met. Panel Today E78.9 - Disorder of lipoprotein metabolism, unspecified, I10 - Essential (primary) hypertension, M15.9 - Polyosteoarthritis, unspecified, R79.89 - Other specified abnormal findings of blood chemistry, Z00.01 - Encounter for general adult medical examination with abnormal findings Comprehensive Met. Panel 6 Months E78.9 - Disorder of lipoprotein metabolism, unspecified LDL Cholesterol Direct 6 Months E78.9 - Disorder of lipoprotein metabolism, unspecified MM tomosynthesis screening BI Today Z12.31 - Encounter for screening mammogram for malignant neoplasm of breast, Z78.0 - Asymptomatic menopausal state XR DEXA axial skeleton Today Z12.31 - Encounter for screening mammogram for malignant neoplasm of breast, Z78.0 - Asymptomatic menopausal state
== END 2024-03-27 15:28 | disposition home or self-care (01) ==
PROVIDERS: PCP Internal Medicine; Visit Provider Internal Medicine
DX: Z00.00 Encounter for general adult medical examination without abnormal findings (principal); I10 Essential (primary) hypertension; R79.89 Other specified abnormal findings of blood chemistry; M15.9 Polyosteoarthritis, unspecified; E78.9 Disorder of lipoprotein metabolism, unspecified; Z78.0 Asymptomatic menopausal state

== ENCOUNTER → 2024-03-27 14:39 | Outpatient (BNVA) | payer OTHER, SELFPAY | PROVIDERS: PCP Internal Medicine; Visit Provider Internal Medicine ==

== ENCOUNTER 2024-03-27 15:00 | Outpatient (REF) | payer OTHER, SELFPAY ==
[2024-03-27 16:18] LABS: MANUAL DIFF FLAG NO
[2024-03-27 16:30] LABS: Basophils Percent Auto 0.3 % (0-2); Eosinophils Absolute Auto 0.1 X10*3/uL (0.0-0.4); Eosinophils Percent Auto 1.9 % (0-4); Hematocrit 35.1 % (37.0-47.0); Hemoglobin 11.7 g/dl (12.0-16.0); Imm Gran Abs Auto 0.01 X10*3/uL (0.00-0.03); Imm Gran Pct Auto 0.2 % (0.0-0.4); Lymphocytes Absolute Auto 1.9 X10*3/uL (1.2-4.9); Lymphocytes Percent Auto 32.9 % (20-40); Mean Corpuscular HGB Conc 33.3 g/dl (31.0-35.0); Mean Corpuscular Hemoglobin 30.4 pg (27.0-33.0); Mean Corpuscular Volume 91.2 fL (80.0-98.0); Mean Platelet Volume 11.1 fL (9.4-12.3); Monocytes Absolute Auto 0.5 X10*3/uL (0.1-1.2); Monocytes Percent Auto 8.5 % (2-11); Neutrophils Absolute Auto 3.3 x10*3/uL (2.0-8.3); Neutrophils Percent Auto 56.2 % (45-73); Platelet Count 240 X10*3/uL (160-400); Red Blood Count 3.85 X10*6/uL (4.20-5.50); Red Cell Distribution Width 13.3 % (11.0-16.0); White Blood Count 5.8 X10*3/uL (4.8-10.8)
[2024-03-27 16:47] LABS: Alanine Aminotransferase 21 U/L (0-31); Albumin Level 4.5 g/dL (3.5-5.0); Alkaline Phosphatase 154 U/L (39-117); Anion Gap 11 (12-20); Aspartate Amino Transferase 23 U/L (5-31); Bilirubin Total 1.1 mg/dL (0.0-1.0); Blood Urea Nitrogen 7 mg/dL (9-16); Calcium 9.4 mg/dL (8.4-10.2); Carbon Dioxide 26 mmol/L (22-29); Chloride 106 mmol/L (96-108); Estimated Glomerular Filt Rate > 60; Glucose Random 92 mg/dL (60-115); Potassium 4.2 mmol/L (3.3-5.1); Sodium 139 mmol/L (135-145); Total Protein 7.1 g/dL (6.5-8.0)
== END 2024-03-27 15:01 | disposition home or self-care (01) ==
LOC: HO.HMGCLDS 15:00
PROVIDERS: PCP Internal Medicine; Visit Provider Internal Medicine
DX: Z00.01 Encounter for general adult medical examination with abnormal findings (principal); I10 Essential (primary) hypertension; R79.89 Other specified abnormal findings of blood chemistry; M15.9 Polyosteoarthritis, unspecified; E78.9 Disorder of lipoprotein metabolism, unspecified
CPT/HCPCS: 36415; 80053; 85025; 96127

== ENCOUNTER 2024-07-10 13:41 | Outpatient (REF) | payer OTHER, SELFPAY | END 2024-07-10 13:42 | disposition home or self-care (01) | LOC: HO.MAMMO 13:41 | PROVIDERS: PCP Internal Medicine; Visit Provider Internal Medicine | DX: Z12.31 Encounter for screening mammogram for malignant neoplasm of breast (principal) | CPT/HCPCS: 77063; 77067 ==

== ENCOUNTER → 2024-07-10 13:45 | Outpatient (BNV) | payer OTHER, SELFPAY | PROVIDERS: PCP Internal Medicine; Visit Provider Internal Medicine | DX: Z12.31 Encounter for screening mammogram for malignant neoplasm of breast (principal) | CPT/HCPCS: 77063; 77067 ==

== ENCOUNTER 2024-10-23 12:46 | Outpatient (REF) | payer OTHER, SELFPAY ==
[2024-10-23 17:31] LABS: Anion Gap 11 (12-20)
[2024-10-23 17:53] LABS: Alanine Aminotransferase 18 U/L (0-31); Albumin Level 4.3 g/dL (3.5-5.0); Aspartate Amino Transferase 26 U/L (5-31); Bilirubin Total 0.9 mg/dL (0.0-1.0); Blood Urea Nitrogen 12 mg/dL (9-16); Calcium 8.9 mg/dL (8.4-10.2); Carbon Dioxide 27 mmol/L (22-29); Chloride 104 mmol/L (96-108); Estimated Glomerular Filt Rate > 60; Glucose Random 87 mg/dL (60-115); Sodium 138 mmol/L (135-145); Total Protein 6.8 g/dL (6.5-8.0)
[2024-10-23 18:08] LABS: Alkaline Phosphatase 139 U/L (39-117)
[2024-10-26 08:39] LABS: LDL Cholesterol Direct 97 mg/dL (<100)
== END 2024-10-23 12:47 | disposition home or self-care (01) ==
LOC: HO.HMGCLDS 12:46
PROVIDERS: PCP Internal Medicine; Visit Provider Internal Medicine
DX: I10 Essential (primary) hypertension (principal); R79.89 Other specified abnormal findings of blood chemistry; E78.9 Disorder of lipoprotein metabolism, unspecified; Z79.899 Other long term (current) drug therapy
CPT/HCPCS: 36415; 80053; 83721; 96127

== ENCOUNTER 2024-10-23 12:46 | Outpatient (AMB) | payer OTHER, SELFPAY ==
--- NOTE | 2024-10-23 12:48 | A.OFFPC_ITS ---
Vital Signs 10/23/24 12:50 Height 4 ft 11 in Weight 84 lb BMI 17.0 BP 112/62 Blood Pressure Location Lt brachial Position Sitting Pulse 66 Pulse Source Pulse Oximeter Temp 98.2 F Temp Source Oral Pulse Oximetry (%) 99 Oxygen Delivery Method Room Air Intake Visit Reasons: 6M F/U Allergies No Known Allergies Allergy (Verified 03/27/24 14:45) Medication List - Last Reconciled 10/23/24 by Musa Muhammad MD lisinopril 10 mg PO DAILY rosuvastatin 5 mg PO DAILY Tobacco use date assessed: 10/23/24 Fall risk assessment: No Falls in past year Last assessed Fall Risk: 10/23/24 Dental Screening Dental Screen Date: 10/23/24 Did you have a dental visit in the last 12 months?: Yes Did you have a dental problem in the last 6 months where you did not have access to dental care?: Yes Was dental information given to patient?: Patient has dentist HPI 6M F/U HPI Details History - The patient is a 68-year-old female pr esenting for a routine six-month follow- up visit for management of hypertension and hyperlipidemia. - She has been on lisinopril 10 mg and r osuvastatin 5 mg, with no reported side effects such as dizziness or lightheadedness. - Cholesterol levels were well-controlle d with an LDL of 70, last tested approximately six months ago. - The last set of laboratory results ind icated stable kidney function and electrolyte balance. However, alkaline phosphatase levels were noted to be consistently elevated but stable. - The patient recalled a discussion with her corn sheller about the sarina vated enzyme levels, where no definitive cause was identified at that time. - Intermittent pain experienced before h as resolved, and no further pain has been reported. - A colonoscopy conducted around 2020 wa s also mentioned. - The patient is reminded of the necessi ty of biannual lab testing in conjunction with her regular visits. Problem List - Essential Hypertension - Hyperlipidemia - Elevated Alkaline Phosphatase Patient Instructions - Remember to undergo lab tests every si x months. - Have fasting labs done one to two days before the next appointment. - Continue taking lisinopril 10 mg and r osuvastatin 5 mg as prescribed. - Monitor for any side effects such as d izziness or lightheadedness, and report if they occur. - Keep track of next appointment [facility] in April at 3:30 PM for a physical exam. - No additional refills needed at this [facility]. Review of Systems - General: No fever no chills - Neurological: No headaches no dizziness - Ear nose throat: No sore throat no hearing difficulty no ear pain - Cardiovascular: No syncope, no chest pain, no palpitations - Gastrointestinal: No nausea vomiting or diarrhea - Endocrine: No polyuria polydipsia no heat intolerance - Genitourinary: No dysuria , no blood in urine Physical Exam General: No acute distress HEENT: No acute findings Neck: Supple Respiratory system: Able to talk in full sentences, no audible wheeze Cardiovascular: S1-S2 regular in rate and rhythm Gastrointestinal: No pain when pressed Extremities: No new findings CONTENT ENGINEER: Alert awake oriented x3 motor sensory intact Skin: Normal turgor [facility] Medical History Tick bite Family History Unknown No family history of colorectal cancer Social History Household Members Other:: Lives alone Housing: House Alcohol intake: current Alcohol intake frequency: a few times a month Patient Tobacco Use Status: Former Tobacco user Years Smoked: 20 yrs e-Cigarette/Vaping Use: Never Used service: No Current occupational status: employed Cognitive needs: No Hearing needs: No Vision needs: Yes Questionnaire PHQ-9 Over the last 2 weeks, how often have you been bothered by any of the following problems? 1. Little interest or pleasure in doing things: not at all 2. Feeling down, depressed, or hopeless: not at all 3. Trouble falling or staying asleep, or sleeping too much: not at all 4. Feeling tired or having little energy: not at all 5. Poor appetite or overeating: not at all 6. Feeling bad about yourself - or that you are a failure or have let yourself or your family down: not at all 7. Trouble concentrating on things, such as reading the newspaper or watching television: not at all 8. Moving or speaking so slowly that other people could have noticed. Or the opposite - being so fidgety or restless that you have been moving around a lot more than usual: not at all 9. Thoughts that you would be better off or of hurting yourself in some way: not at all Total score: 0 Depression Screening Interpretation: Negative Depression Screening Done: Yes 70401 - PHQ-9 Billing: Yes Source: Developed by Drs. Trip Shepard, Cassandra Hernandez, Td Mendoza and colleagues, with an educational kristi from [email or web address]. Thrive Questionnaire Date Thrive assessed: 03/27/24 I am a: Patient What is your living situation today?: I have a steady place to live Within the past 12 months, did the food you bought not last and you didn't have the money to get more?: Never true Within the past 12 months, did you worry whether your food would run out before you got money to buy more?: Never true Do you have trouble paying for medicines?: No Do you have trouble getting transportation to medical appointments?: No Do you have trouble paying your heating and electricity bill?: No Do you have trouble taking care of your child, family member or friend?: No Do you have trouble with day-to-day activities such as bathing, preparing meals, shopping, managing finances, etc.?: No Are you currently unemployed and looking for a job?: No Are you interested in more education?: I choose not to answer this question Please select the resources that you would like help with: None Currently or been in a relationship where the following occur: No concerns reported THRIVE Score: 0 AUDIT C Alcohol Use Questionnaire (AUDIT-C) 1. How often do you have a drink containing alcohol?: Monthly or less 2. How many drinks containing alcohol do you have on a typical day when you are drinking?: 1 or 2 3. How often do you have six or more drinks on one occasion?: Never Total Score: 1 VENESSA-7 AMB Questionnaire VENESSA-7 Date VENESSA - 7 assessed: 03/27/24 Feeling nervous, anxious, or on edge: 0 = Not at all Not being able to stop or control worryin = Not at all Worrying too much about different things: 0 = Not at all Trouble relaxin = Not at all Being so restless that it is hard to sit still: 0 = Not at all Becoming easily annoyed or irritable: 0 = Not at all Feeling afraid as if something awful might happen: 0 = Not at all Total VENESSA-7 score (0-4 normal; 5-9 mild; 10-14 moderate; 15-21 severe): 0 Source: Developed by Drs. Trip Shepard, Cassandra Hernandez, Td Mendoza and colleagues, with an educational kristi from [email or web address]. Physical exam (Primary Care) Vital Signs: Last Vital Signs Temp 98.2 F 10/23/24 12:50 Pulse 66 10/23/24 12:50 BP 112/62 10/23/24 12:50 Pulse Ox 99 10/23/24 12:50 Oxygen Delivery Method Room Air 10/23/24 12:50 BMI result Body Mass Index 17.0 Tobacco/Smoking Status: Tobacco use Status Tobacco use date assessed 10/23/24 10/23/24 12:53 Patient Tobacco Use Status Former Tobacco user 10/23/24 12:50 e-Cigarette/Vaping Use Never Used 10/23/24 12:50 PHQ-9: PHQ-9 Score PHQ-9: Total score 0 10/23/24 13:01 Depression Screening Interpretation: Negative Thrive Assessment: Date of Thrive Assessment Date Thrive assessed 03/27/24 10/23/24 12:50 Currently or been in a relationship where the following occur: No concerns reported Coding Level of Care Code Est Pt Level 3 (77582) Diagnoses Hypertension, essential I10 LFT elevation R79.89 Lipid disorder E78.9 Additional Codes PHQ-9 - 76894 - PHQ-9 Billing: Yes ([id number]) Assessment & Plan Assessment & Plan (1) Hypertension, essential: Code(s): I10 - Essential (primary) hypertension Category: Medical (2) LFT elevation: Code(s): R79.89 - Other specified abnormal findings of blood chemistry Category: Medical (3) Lipid disorder: Code(s): E78.9 - Disorder of lipoprotein metabolism, unspecified Category: Medical Plan History - The patient is a 68-year-old female presenting for a routine six-month follow- up visit for management of hypertension and hyperlipidemia. - She has been on lisinopril 10 mg and rosuvastatin 5 mg, with no reported side effects such as dizziness or lightheadedness. - Cholesterol levels were well-controlled with an LDL of 70, last tested approximately six months ago. - The last set of laboratory results indicated stable kidney function and electrolyte balance. However, alkaline phosphatase levels were noted to be consistently elevated but stable. - The patient recalled a discussion with her corn sheller about the elevated enzyme levels, where no definitive cause was identified at that time. - Intermittent pain experienced before has resolved, and no further pain has been reported. - A colonoscopy conducted around 2020 was also mentioned. - The patient is reminded of the necessity of biannual lab testing in conjunction with her regular visits. Problem List - Essential Hypertension - Hyperlipidemia - Elevated Alkaline Phosphatase Patient Instructions - Remember to undergo lab tests every six months. - Have fasting labs done one to two days before the next appointment. - Continue taking lisinopril 10 mg and rosuvastatin 5 mg as prescribed. - Monitor for any side effects such as dizziness or lightheadedness, and report if they occur. - Keep track of next appointment scheduled in April at 3:30 PM for a physical exam. - No additional refills needed at this moment. Orders: Orders Complete Blood Count Auto Diff 5 Months E78.9 - Disorder of lipoprotein metabolism, unspecified, I10 - Essential (primary) hypertension, R79.89 - Other specified abnormal findings of blood chemistry Lipid Panel 5 Months E78.9 - Disorder of lipoprotein metabolism, unspecified, I10 - Essential (primary) hypertension, R79.89 - Other specified abnormal findings of blood chemistry Comprehensive [place]. Panel Fast 5 Months E78.9 - Disorder of lipoprotein metabolism, unspecified, I10 - Essential (primary) hypertension, R79.89 - Other specified abnormal findings of blood chemistry
[2024-10-23 12:50] VITALS: BP 112/62; PULSE 66; TEMP 36.8; O2SAT 99; BMI 17.0
== END 2024-10-23 13:55 | disposition home or self-care (01) ==
LOC: HO.HMCC 12:47
PROVIDERS: PCP Internal Medicine; Visit Provider Internal Medicine
DX: I10 Essential (primary) hypertension (principal); R79.89 Other specified abnormal findings of blood chemistry; E78.9 Disorder of lipoprotein metabolism, unspecified

== ENCOUNTER 2025-04-10 07:46 | Outpatient (REF) | payer OTHER, SELFPAY ==
--- OUTSIDE RECORDS SUMMARY | 2025-04-10 07:49 | XMS_ITS | Clinical Summary ---
Author Organization [facility] Address [address] [facility] [address] [place] [id number] Phone Care Team Providers Care Defect Cutter Name Role Phone Musa Muhammad MD Primary Care Provider [phone] Allergies No known active allergies Medications lisinopril (PRINIVIL,ZESTRI L) 5 MG tablet Take 10 mg by mouth daily. Active Resolved Problems Problem Noted Date Diagnosed Date Resolved Date Cyst of right ovary 02/02/2020 03/29/20 21 Assessment & Plan (02/28/2020 11:32 AM EDT): Pelvic ultrasound 02/15/2020: Right Ovary Volume: 166.40 ml Contains a cyst No adnexal masses seen. Length: 8.28 cm Height: 5.72 cm Width: 6.71 cm Cyst Mostly anechoic with a few floating internal echoes and one avascular septation. Length: 7.37 cm Height: 5.52 cm Width: 6.28 cm No free fluid is present. CA-125 10.2 Discussed with patient likely etiology is a benign ovarian cystic mass. Less likely LMP tumor or ovarian carcinoma discussed. Option of proceeding with laparoscopic oophorectomy with bilateral salpingectomy at [facility] versus with PROJECT DRILLING ENGINEER oncologist reviewed. If proceeding with surgery at [facility], and in the event a carcinoma is present, patient may require a subsequent staging surgery. Patient would like to proceed with consultation with PROJECT DRILLING ENGINEER oncology. Patient still not eager to proceed with surgical intervention unless there is concern for cancer. I advised patient without having tissue obtained at surgery there is no way to be certain of benign etiology. Advised patient in general, with postmenopausal women and cystic lesion greater than 5 cm surgical intervention is usually advised. Patient prefers [facility] and consultation with Dr. Rodriguez will be scheduled. Assessment & Plan (02/09/2020 10:46 AM EDT): Incidental finding of right ovarian cyst on CT scan during work-up for microscopic hematuria. Patient is asymptomatic. Likely benign characteristics discussed with patient. Suggested Ca125 testing and ultrasound to better image ovarian cyst characteristics as patient is not eager to proceed with surgical intervention unless there is a concern for cancer. Plan to obtain any previous imaging from [facility]. Family History Medical History Relation Comments Prostate cancer Father age 65 Seizures Maternal Aunt cadasil No Known Problems Maternal Grandfather No Known Problems Maternal Grandmother Breast cancer Mother did well Seizures Mother of cadasil age 82 Uterine cancer Mother did well - hyst Heart disease Paternal Grandfather Cancer Paternal Grandmother Relation Status Comments Brother Alive Father Maternal Aunt Maternal Grandfather Maternal Grandmother Mother Paternal Grandfather Paternal Grandmother Social History Tobacco Use Types Packs/Day Years Used Date Smoking Tobacco: Former Cigarettes Smokeless Tobacco: Never Comments:Quit 2007 Alcohol Use Standard Drinks/Week Comments Yes 0 (1 standard drink = 0.6 oz pur e alcohol) Education Answer Date Recorded Are you interested in more education? Not on deuce e 10/12/2022 Are you concerned about learning? Not on file 10/12/2022 No 10/12/2022 No 10/12/2022 Digital Access Answer Date Recorded No 11/10/2022 No 11/10/2022 Reliable internet access at home? Not on file 11/10/2022 Device with a working camera? 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 file Not on file Not on file Last Filed Vital Signs Vital Sign Reading Time Taken Comments Blood Pressure 128/82 02/26/2020 8:44 AM EDT Pulse - - Temperature - - Respiratory Rate - - Oxygen Saturation - - Inhaled Oxygen Concentration - - Weight 39.5 kg (87 lb) 03/30/2021 8:19 AM EDT Height 152.4 cm (5') 03/30/2021 8:19 AM EDT Body Mass Index 16.99 03/30/2021 8:19 AM EDT Plan of Treatment Health Maintenance Due Date Last Done Comments Adult Td,Tdap Booster 1957 CREATININE LEVEL 1957 LIPID PANEL 1957 POTASSIUM LEVEL 1957 DEPRESSION SCREENING 1969 SMOKING Hx and SMOKELESS TOB ACCO SCREENING 1970 HEPATITIS C SCREENING 12/27/1975 MAMMOGRAM 1997 COLOGUARD 2002 COLONOSCOPY 2002 COLORECTAL CANCER SCREENING 2002 FIT TEST 2002 FOBT 2002 SIGMOIDOSCOPY 2002 VIRTUAL COLONOSCOPY 2002 PNEUMOCOCCAL VACCINES (50+ y ears) (1 of 1 - PCV) 12/27/2007 ZOSTER VACCINES (1 of 2) 12/27/2007 OSTEOPOROSIS SCREENING INITI AL (ONE-TIME) 2022 INFLUENZA VACCINE (#1) 2025 COVID-19 VACCINE (2 - 2024-2 6 season) 2025 09/18/2020 RSV VACCINE (1 - 1-dose 75+ series) 2032 HEPATITIS A VACCINES Aged Out No long er eligible based on patient's age to complete this topic HIB VACCINES Aged Out No longer eligi ble based on patient's age to complete this topic MENINGOCOCCAL VACCINES (ACWY) Aged Out No longer eligible based on patient's age to complete this topic MENINGOCOCCAL VACCINES (B) Aged Out N o longer eligible based on patient's age to complete this topic Medical Devices Not on file Insurance [facility] [address] [place], [place] [address] [address] [address] H[place] [facility] [address] [place] [address] [facility] [place] [address] [place] [address] HMO Care Teams Defect Cutter Relationship Specialty Start Date End Date Musa Muhammad MD [address] [id number] PCP - General Internal Medicine 12/29/19 Additional Source Comments The information contained in this document represents components of the legal health record. It is not the complete legal health record.[facility]
[2025-04-10 08:21] LABS: Hematocrit 35.9 % (37.0-47.0); Hemoglobin 11.8 g/dl (12.0-16.0); Imm Gran Abs Auto 0.01 X10*3/uL (0.00-0.03); Imm Gran Pct Auto 0.2 % (0.0-0.4); Lymphocytes Absolute Auto 1.4 X10*3/uL (1.2-4.9); MANUAL DIFF FLAG SCAN; Mean Corpuscular HGB Conc 32.9 g/dl (31.0-35.0); Mean Corpuscular Hemoglobin 30.2 pg (27.0-33.0); Mean Corpuscular Volume 91.8 fL (80.0-98.0); NRBC Abs Auto 0.000 X10*3/uL (0.0-0.012); NRBC Pct Auto 0.0 /100WBC (0.0-0.2); PLT CLUMP 1; Red Blood Count 3.91 X10*6/uL (4.20-5.50); SCAN SMEAR FLAG 1
[2025-04-10 08:25] LABS: White Blood Count 4.0 X10*3/uL (4.8-10.8)
[2025-04-10 08:49] LABS: Alanine Aminotransferase 19 U/L (0-31); Albumin Level 4.5 g/dL (3.5-5.0); Alkaline Phosphatase 134 U/L (39-117); Anion Gap 10 (12-20); Aspartate Amino Transferase 29 U/L (5-31); Blood Urea Nitrogen 8 mg/dL (9-16); Calcium 9.0 mg/dL (8.4-10.2); Carbon Dioxide 24 mmol/L (22-29); Chloride 111 mmol/L (96-108); Cholesterol 178 mg/dL (<200); Estimated Glomerular Filt Rate > 60; HDL Cholesterol 75 mg/dL (>40); Potassium 4.1 mmol/L (3.3-5.1); Sodium 141 mmol/L (135-145); Total Protein 7.0 g/dL (6.5-8.0); Triglycerides 123 mg/dL (<150)
[2025-04-10 08:50] LABS: Platelet Count 216 X10*3/uL (160-400)
== END 2025-04-10 07:47 | disposition home or self-care (01) ==
LOC: HO.LAB 07:46
PROVIDERS: PCP Internal Medicine; Visit Provider Internal Medicine
DX: I10 Essential (primary) hypertension (principal); E78.9 Disorder of lipoprotein metabolism, unspecified; R79.89 Other specified abnormal findings of blood chemistry
CPT/HCPCS: 36415; 80053; 80061; 85025

== ENCOUNTER 2025-06-09 09:12 | Outpatient (AMB) | payer OTHER, SELFPAY ==
[2025-06-09 09:14] VITALS: BP 112/70; PULSE 64; O2SAT 96; BMI 17.2
--- NOTE | 2025-06-09 09:14 | A.OFFPC_ITS ---
Vital Signs 06/09/25 09:14 Height 4 ft 11 in Weight 85 lb BMI 17.2 BP 112/70 Blood Pressure Location Lt brachial Position Sitting Pulse 64 Pulse Source Pulse Oximeter Pulse Oximetry (%) 96 Intake Visit Reasons: PE reschedule Allergies No Known Allergies Allergy (Verified 06/09/25 09:14) Medication List - Last Reconciled 06/09/25 by Musa Muhammad MD lisinopril 10 mg PO DAILY rosuvastatin 5 mg PO DAILY Tobacco use date assessed: 10/23/24 Fall risk assessment: No Falls in past year Last assessed Fall Risk: 06/09/25 Dental Screening Dental Screen Date: 10/23/24 HPI HPI Comments History of Present Illness Details History of Present Illness The patient is a 69 year old female presenting for a physical exam. Essential Hypertension: - The patient takes lisinopril for hyper tension. - Her blood pressure at the visit was 11 2/70 mmHg. - She reports occasional dizziness and l ightheadedness, which she attributes to increased physical activity. Hyperlipidemia: - The patient is on rosuvastatin to [facility] ge her cholesterol. - Blood tests from March showed a very good LDL level and an HDL of 75. History of Hematuria: - The patient saw a urologist last year for blood in her urine and has completed a three-year evaluation for hematuria with negative findings. - The urologist found no changes and did not recommend a return visit. - It is thought that she continues to gonzales ve microscopic bleeding from the bladder. History of Tobacco Use: - The patient is a former smoker, having quit a long time ago. - She reports a smoking history of appro ximately 20 years. Anemia and Underweight: - Blood tests from March showed she wa s slightly anemic, which she believes has been a lifelong condition. - The anemia is thought to be related to iron loss from microscopic hematuria. - Her BMI is 17.2, categorizing her as u nderweight. - She reports actively trying to gain we ight and has purchased a weight-gain supplement. Health Maintenance: - [facility]: [facility] - Colonoscopy: Her last colonoscopy was in October 2021, with the next one due in 2026. - Pap smear: She last had one in [facility] and recalls being told she may only need them every five years or not at all. - Immunizations: She is due for tetanus and pneumonia vaccines but declines the flu shot due to a past adverse reaction. - Bone Density: She has never had a bone density scan. Medical History: - Essential hypertension - Hyperlipidemia - Microscopic hematuria, with a negative three-year urological evaluation. - Mild anemia, noted as a lifelong condi tion. - Underweight (BMI 17.2) Social History: - Tobacco Use: The patient is a former s moker with a reported 20-year history. - Exercise: She reports walking her dog frequently. - Nutrition: She is actively trying to g ain weight and has purchased a nutritional supplement. - Advance Directives: The patient has re quested information and forms for a Do Not Resuscitate (DNR) order and inquired about end-of-life options. Health Maintenance - Mammogram: Last performed in June 18. - Colonoscopy: Last performed in October; next is due in 2026. - Pap Smear: Status is unclear; patient was told she may not need them going forward. - Immunizations: Patient is due for teta nus and pneumonia vaccines. - Lung Cancer Screening: Under considera tion due to smoking history; a referral will be sent to determine eligibility. - Pulmonary Function Test (PFT): Will be ordered to assess lung function. - Bone Density Scan: Patient has never h ad one and has agreed to have one scheduled with her next mammogram. [facility] - Dr. Cho, Gastroenterology (for col onoscopy). - STOCK LAYER at [facility] or [facility]. - Urology (seen last year for hematuria) . Medications - Lisinopril for hypertension. - Rosuvastatin for hyperlipidemia. [facility] Medical History Tick bite Family History Unknown No family history of colorectal cancer Social History Household Members Other:: Lives alone Housing: House Alcohol intake: current Alcohol intake frequency: a few times a month Patient Tobacco Use Status: Former Tobacco user Years Smoked: 20 yrs e-Cigarette/Vaping Use: Never Used service: No Current occupational status: employed Cognitive needs: No Hearing needs: No Vision needs: Yes Questionnaire Thrive Questionnaire Date Thrive assessed: 10/23/24 I am a: Patient What is your living situation today?: I have a steady place to live Within the past 12 months, did the food you bought not last and you didn't have the money to get more?: Never true Within the past 12 months, did you worry whether your food would run out before you got money to buy more?: Never true Do you have trouble paying for medicines?: No Do you have trouble getting transportation to medical appointments?: No Do you have trouble paying your heating and electricity bill?: No Do you have trouble taking care of your child, family member or friend?: No Do you have trouble with day-to-day activities such as bathing, preparing meals, shopping, managing finances, etc.?: No Are you currently unemployed and looking for a job?: No Are you interested in more education?: I choose not to answer this question Currently or been in a relationship where the following occur: No concerns reported THRIVE Score: 0 VENESSA-7 AMB Questionnaire VENESSA-7 Date VENESSA - 7 assessed: 03/27/24 Source: Developed by Drs. Trip Shepard, Cassandra Hernandez, Td Mendoza and colleagues, with an educational kristi from [employer]. Review of Systems Narrative Review of Systems - General: No fever no chills - Neurological: No headaches no dizziness - Ear nose throat: No sore throat no hearing difficulty no ear pain - Cardiovascular: No syncope, no chest pain, no palpitations - Gastrointestinal: No nausea vomiting or diarrhea - Endocrine: No polyuria polydipsia no heat intolerance - Genitourinary: No dysuria - Skin: No new complaints Physical exam (Primary Care) Vital Signs: Last Vital Signs Pulse 64 06/09/25 09:14 BP 112/70 06/09/25 09:14 Pulse Ox 96 06/09/25 09:14 BMI result Body Mass Index 17.2 Tobacco/Smoking Status: Tobacco use Status Tobacco use date assessed 10/23/24 06/09/25 09:15 Patient Tobacco Use Status Former Tobacco user 06/09/25 09:15 e-Cigarette/Vaping Use Never Used 06/09/25 09:15 Thrive Assessment: Date of Thrive Assessment Date Thrive assessed 10/23/24 06/09/25 09:15 Currently or been in a relationship where the following occur: No concerns reported Narrative Diagnostic results - Vitals: Blood pressure 112/70 mmHg. - Labs (March): Showed mild anemia, good LDL, and HDL of 75. - Urology Evaluation: Negative findings for hematuria. Physical Exam General: Cooperative, healthy appearing, comfortable, no acute distress Orientation: Patient oriented x3 Head: Normal to inspection Ears: Within normal limit visually Nose: Normal external nose present Face and sinus: Normal facial exam Eyes: Appearance normal, extraocular movement intact pupils reactive Neck: Normal visual inspection and supple Respiratory: Normal respiratory effort and able to speak in complete sentences. Clear to auscultation, no stridor Cardiovascular: S1 and S2 RRR Breast exam bengin GI: Normal to inspection. Soft to palpation and nontender Skin: Turgor normal, no acute findings Neuro: Patient oriented x3, motor sensory intact, balance intact, tandem pass Extremities: Normal to inspection, no swelling, joints are Mobile . Coding Level of Care Code Est Pt Prev Care >65y(27710) Add On Preventative Visit Only Diagnoses Encounter for general adult medical examination with abnormal findings Z00.01 Shortness of breath R06.02 Ex-smoker Z87.891 Hypertension, essential I10 Menopausal state N95.1 Elevated alkaline phosphatase level R74.8 Iron deficiency anemia due to chronic blood loss D50.0 Anemia type: iron deficiency Iron deficiency anemia type: chronic blood loss Primary osteoarthritis involving multiple joints M15.9 Osteoarthritis type: primary Lipid disorder E78.9 Assessment & Plan Assessment & Plan (1) Encounter for general adult medical examination with abnormal findings: Code(s): Z00.01 - Encounter for general adult medical examination with abnormal findings Category: Medical (2) Shortness of breath: Code(s): R06.02 - Shortness of breath Category: Medical (3) Ex-smoker: Code(s): Z87.891 - Personal history of nicotine dependence Category: Social Hx (4) Hypertension, essential: Code(s): I10 - Essential (primary) hypertension Category: Medical (5) Menopausal state: Code(s): N95.1 - Menopausal and female climacteric states Category: Medical (6) Elevated alkaline phosphatase level: Comment: [id number] on elevated alk-phos Code(s): R74.8 - Abnormal levels of other serum enzymes Category: Medical (7) Anemia: Code(s): D64.9 - Anemia, unspecified Category: Medical Qualifiers: Anemia type: iron deficiency Iron deficiency anemia type: chronic blood loss Qualified Code(s): D50.0 - Iron deficiency anemia secondary to blood loss (chronic) (8) Osteoarthritis of multiple joints: Code(s): M15.9 - Polyosteoarthritis, unspecified Category: Medical Qualifiers: Osteoarthritis type: primary Qualified Code(s): M15.9 - Polyosteoarthritis, unspecified (9) Lipid disorder: Code(s): E78.9 - Disorder of lipoprotein metabolism, unspecified Category: Medical Plan Patient Instructions - Take half of your lisinopril tablet (5 mg) instead of the full dose. - Check your blood pressure at home. If the top number goes above 140, you can go back to taking the full lisinopril tablet. - Get your tetanus and pneumonia shots at a local pharmacy, such as [facility], after your holiday event. - A breathing test (pulmonary function test) will be ordered for you. - A bone density test will be scheduled for you at the same time as your next mammogram. - Review the Do Not Resuscitate (DNR) form at home and bring it with you to your next visit to be signed. - Get a blood test done before your next appointment. - Follow up in the office in about three months. Orders: Orders PFT pulmonary function test Today R06.02 - Shortness of breath, Z87.891 - Personal history of nicotine dependence XR DEXA axial skeleton Today N95.1 - Menopausal and female climacteric states TSH reflex Free T4 Today D64.9 - Anemia, unspecified, E78.9 - Disorder of lipoprotein metabolism, unspecified, I10 - Essential (primary) hypertension, M15.9 - Polyosteoarthritis, unspecified, R74.8 - Abnormal levels of other serum enzymes, Z00.01 - Encounter for general adult medical examination with abnormal findings MM tomosynthesis screening BI Today Z12.31 - Encounter for screening mammogram for malignant neoplasm of breast Complete Blood Count Auto Diff Today D64.9 - Anemia, unspecified, E78.9 - Disorder of lipoprotein metabolism, unspecified, I10 - Essential (primary) hypertension, M15.9 - Polyosteoarthritis, unspecified, R74.8 - Abnormal levels of other serum enzymes, Z00.01 - Encounter for general adult medical examination with abnormal findings Comprehensive Met. Panel Today D64.9 - Anemia, unspecified, E78.9 - Disorder of lipoprotein metabolism, unspecified, I10 - Essential (primary) hypertension, M15.9 - Polyosteoarthritis, unspecified, R74.8 - Abnormal levels of other serum enzymes, Z00.01 - Encounter for general adult medical examination with abnormal findings Referrals Lung Cancer Screening Referral R06.02 - Shortness of breath, Z87.891 - Personal history of nicotine dependence
--- OUTSIDE RECORDS SUMMARY | 2025-06-09 09:20 | XMS_ITS | Clinical Summary ---
Author Organization [facility] Address [address] [facility] [address] [place] [phone] Phone Care Team Providers Care Industrial Truck Driver Name Role Phone Musa Muhammad MD Primary Care Provider [phone] Allergies No known active allergies Medications lisinopril [...] with laparoscopic oophorectomy with bilateral salpingectomy at [facility] versus with BAND SAW OPERATOR CAKE CUTTING oncologist reviewed. If proceeding with surgery at [facility], and in the event a carcinoma is present, patient may require a subsequent staging surgery. Patient would like to proceed with consultation with BAND SAW OPERATOR CAKE CUTTING oncology. Patient still not eager to proceed with surgical intervention unless there is concern for cancer. I advised patient without having tissue obtained at surgery there is no way to be certain of benign etiology. Advised patient in general, with postmenopausal women and cystic lesion greater than 5 cm surgical intervention is usually advised. Patient prefers [facility] and consultation with Dr. Rodriguez will be [...] Plan to obtain any previous imaging from [facility]. Family History Medical History Relation Comments Prostate [...] topic Medical Devices Not on file Insurance [facility] [address] [address] [place] [address] [place] [address] [facility] [address] [place] [address] [place] [address] HMO Care Teams Industrial Truck Driver Relationship Specialty Start Date End Date Musa Muhammad MD [address] [place] [id number] PCP - General Internal Medicine 12/29/19 Additional Source Comments The information contained in this document represents components of the legal health record. It is not the complete legal health record.[facility]
== END 2025-06-09 09:39 | disposition home or self-care (01) ==
LOC: HO.HMCC 09:13
PROVIDERS: PCP Internal Medicine; Visit Provider Internal Medicine
DX: Z00.01 Encounter for general adult medical examination with abnormal findings (principal); I10 Essential (primary) hypertension; E78.9 Disorder of lipoprotein metabolism, unspecified; D64.9 Anemia, unspecified; N95.1 Menopausal and female climacteric states; R74.8 Abnormal levels of other serum enzymes; M15.9 Polyosteoarthritis, unspecified; R63.6 Underweight; Z68.1 Body mass index [BMI] 19.9 or less, adult; Z87.891 Personal history of nicotine dependence